=== PATIENT | female | born 1960 | race Caucasian/White ===

== ENCOUNTER 2018-04-29 11:57 | Emergency (ER) | payer OTHER ==
[2018-04-29 12:33] LABS: ADD MAN DIFF? NO
[2018-04-29 12:34] LABS: WHITE BLOOD COUNT 6.2 10^3/ul (4.8-10.8)
[2018-04-29 12:34] LABS: BASOPHILS % 0.6 % (0.0-2.0); EOSINOPHILS # 0.1 10^3/ul (0.0-0.5); EOSINOPHILS % 2.1 % (0.0-7.0); HEMATOCRIT 38.1 % (37.0-47.0); HEMOGLOBIN 12.9 g/dl (12.0-16.0); LYMPHOCYTES # 2.2 10^3/ul (0.8-2.9); LYMPHOCYTES % 36.2 % (15.0-51.0); MEAN CORPUSCULAR HEMOGLOBIN 29.9 pg (29.0-33.0); MEAN CORPUSCULAR HGB CONC 33.9 g/dl (32.0-37.0); MEAN CORPUSCULAR VOLUME 88.4 fl (82.0-101.0); MEAN PLATELET VOLUME 9.7 fl (7.4-10.4); MONOCYTE # 0.3 10^3/ul (0.3-0.9); MONOCYTES % 4.4 % (0.0-11.0); NEUTROPHIL # 3.5 10^3/ul (1.6-7.5); NEUTROPHILS % 56.1 % (39.0-77.0); PLATELET COUNT 232 10^3/UL (140-415); RED BLOOD COUNT 4.31 10^6/ul (4.20-5.40); RED CELL DISTRIBUTION WIDTH 12.5 % (11.5-14.5)
[2018-04-29 12:45] LABS: INR 0.87; PROTIME 11.9 Sec (11.9-14.9); PT RATIO 0.9
[2018-04-29 12:46] LABS: PARTIAL THROMBOPLASTIN TIME 28.9 Sec (23.0-35.0)
[2018-04-29 12:49] LABS: ANION GAP 10 (5-13); BLOOD UREA NITROGEN 20 mg/dl (7-20); CALCIUM 9.6 mg/dl (8.4-10.2); CARBON DIOXIDE 24 mmol/L (21-31); CHLORIDE 108 mmol/L (97-110); CHOLESTEROL 185 mg/dl (100-200); CREATININE 0.57 mg/dl (0.44-1.00); Estimated GFR > 60 mL/min (>60); GLUCOSE 144 mg/dl (70-220); HDL CHOLESTEROL 46 mg/dl (35-98); LDL CHOLESTEROL,CALCULATED 104 mg/dl; POTASSIUM 3.9 mmol/L (3.5-5.1); SODIUM 142 mmol/L (135-144); TRIGLYCERIDES 173 mg/dl (0-149)
[2018-04-29] MEDS: SOD CHLORIDE 0.9% 500 ML IV (12:54)
[2018-04-29 12:59] LABS: TROPONIN-I < 0.012 ng/ml (0.000-0.120)
[2018-04-29 13:04] LABS: HEMOGLOBIN A1C 5.2 % (0-5.9)
== END 2018-04-29 14:56 | disposition home or self-care (01) ==
LOC: E/R 11:57
DX: R06.02 Shortness of breath (principal); F41.9 Anxiety disorder, unspecified; R20.2 Paresthesia of skin; R06.4 Hyperventilation
CPT/HCPCS: 36415; 70450; 71045; 80048; 80061; 83036; 84484; 85025; 85610; 85730; 93005; 99285-25